=== PATIENT | male | born 1985 | race Two or more races ===

== ENCOUNTER 2018-11-23 09:24 | Emergency (ER) | payer SELFPAY ==
[~2018-11-23] VITALS: Ht 162.6 cm; Wt 83.9 kg
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
--- NOTE | 2018-11-23 09:56 | NUR ---
DR WOODS AT BEDSIDE
--- NOTE | 2018-11-23 10:08 | NUR ---
ROAD OILER AT BEDSIDE.
[2018-11-23 10:18] LABS: BASOPHILS % (AUTO) 0.7 % (0.0-2.0); EOSINOPHILS % (AUTO) 1.7 % (0.0-6.0); HEMATOCRIT 42 % (39-51); HEMOGLOBIN 14.6 g/dL (13.5-17.5); LYMPHOCYTES # (AUTO) 1.9 /CMM (0.8-4.8); LYMPHOCYTES % (AUTO) 31.9 % (20.0-44.0); MEAN CORPUSCULAR HGB CONC 34 g/dl (31.0-36.0); MEAN CORPUSCULAR VOLUME 88 fL (80-96); MONOCYTES # (AUTO) 0.5 /CMM (0.1-1.30); MONOCYTES % (AUTO) 7.8 % (2.0-12.0); NEUTROPHILS # (AUTO) 3.5 /CMM (1.8-8.9); NEUTROPHILS % (AUTO) 57.9 % (43.0-81.0); PLATELET COUNT (AUTO) 302 /CMM (150-450); RED BLOOD CELL COUNT(AUTO) 4.83 MIL/uL (4.5-6.0)
[2018-11-23 10:32] LABS: CALCIUM, SERUM 8.6 mg/dL (8.5-10.1); CREATININE 0.9 mg/dL (0.6-1.3); POTASSIUM 4.1 mmol/L (3.5-5.1)
[2018-11-23 10:37] LABS: ALBUMIN 3.9 g/dL (3.4-5.0); BILIRUBIN,DIRECT 0.1 mg/dL (0.0-0.2); BILIRUBIN,TOTAL 0.5 mg/dL (0.2-1.0); TOTAL PROTEIN, SERUM 7.4 g/dL (6.4-8.2)
[2018-11-23] MEDS ORDERED: CT SWABBABLE VALVE TRANS SET 1 EA INFUS.SET MC ONE (11:35)
[2018-11-23] MEDS ORDERED: IOHEXOL-300 100 ML VIAL IV ONE (11:35)
[2018-11-23] MEDS ORDERED: IV NS 0.9% 250 ML IV ONE (11:35)
--- NOTE | 2018-11-23 13:41 | NUR ---
IV removed. Catheter intact and site benign. Pressure and 4x4 applied to site. No bleeding noted.Patient discharged to home in stable condition. Written and verbal after care instructions given. Patient verbalizes understanding of instruction.
[2018-11-23 13:45] VITALS: BP 126/74
== END 2018-11-23 13:47 | disposition home or self-care (01) ==
LOC: ER 09:24
DX: S00.03XA Contusion of scalp, initial encounter (principal); S39.81XA Other specified injuries of abdomen, initial encounter; S29.8XXA Other specified injuries of thorax, initial encounter; V49.59XA Passenger injured in collision with other motor vehicles in traffic accident, initial encounter; Y93.89 Activity, other specified; Y92.413 State road as the place of occurrence of the external cause; Y99.8 Other external cause status
CPT/HCPCS: 36415; 70450; 74177; 80048; 80076; 85025; 85730; 99284; J7050; Q9967